=== PATIENT | female | born 1950 | race African-American/Black ===

== ENCOUNTER 2020-07-01 11:02 | Inpatient (IN) ==
[2020-07-01] MEDS ORDERED: ASPIRIN 325 MG TABLET PO ONE (11:31)
[2020-07-01] MEDS ORDERED: diphenhydrAMINE CAP 50 MG CAPSULE PO ONE (11:31)
[2020-07-01] MEDS ORDERED: DIAZEPAM 5 MG TABLET PO ONE (11:31)
[2020-07-01] MEDS ORDERED: MAGNESIUM SULF RIDER 2 GM in PREMIX 1 EACH IV PRN (11:31)
[2020-07-01] MEDS ORDERED: SODIUM CHLORIDE 0.9% 1,000 ML IV SCH (12:00)
[2020-07-01] MEDS ORDERED: DIAZEPAM 5 MG TABLET ONE (12:31)
[2020-07-01] MEDS ORDERED: diphenhydrAMINE CAP 50 MG CAPSULE ONE (12:31)
[2020-07-01] MEDS ORDERED: ASPIRIN 325 MG TABLET ONE (12:32)
[2020-07-01] MEDS ORDERED: LIDOCAINE 1% 20 ML VIAL ONE (13:40)
[2020-07-01] MEDS ORDERED: HYDROmorphone 2 MG/1 ML VIAL ONE (13:45)
[2020-07-01] MEDS ORDERED: MIDAZOLAM 2 MG/2 ML VIAL ONE (13:45)
[2020-07-01] MEDS ORDERED: HEPARIN 5,000 UNIT/1 ML VIAL ONE (14:09)
[2020-07-01] MEDS ORDERED: VERAPAMIL 5 MG/2 ML VIAL ONE (14:11)
[2020-07-01] MEDS ORDERED: NITROGLYCERIN DRIP 50 MG/250 ML BOTTLE IV ONE (14:11)
[2020-07-01] MEDS ORDERED: hydrALAZINE 20 MG/1 ML VIAL ONE (15:24)
[2020-07-01] MEDS ORDERED: NITROGLYCERIN SL 0.4 MG TABLET SL PRN (15:43)
[2020-07-01] MEDS: SODIUM CHLORIDE 0.9% 1,000 ML IV SCH (18:16)
[2020-07-01] MEDS ORDERED: ALBUTEROL 2.5 MG/3 ML NEB RESP TX PRN (19:00)
[2020-07-01] MEDS ORDERED: ONDANSETRON 4 MG/2 ML VIAL IV PRN (21:20)
[2020-07-01] MEDS: MAGNESIUM OXIDE 400 MG TABLET PO SCH (21:40)
[2020-07-01] MEDS: ATORVASTATIN 20 MG TABLET PO SCH (21:40)
[2020-07-01] MEDS: ISOSORBIDE MONONITRATE 60 MG TABLET PO SCH (21:40)
[2020-07-02 05:42] LABS: Basophils % 0.1 % (0.0-0.8); Eosinophils # 0.1 10*3/uL (0.0-0.87); Eosinophils % 0.7 % (0.00-10.9); Hematocrit 30.9 VOL% (35.7-47.0); Hemoglobin 9.9 GM/DL (12.0-16.0); Immature Granulocytes % 0.3 %; Immature Granulocytes Absolute 0.02 #; Lymphocytes # 2.3 10*3/uL (1.4-4.0); Lymphocytes % 34.4 % (21.3-54.2); Mean Corpuscular Volume 94.8 FL (87-102); Mean Platelet Volume 9.6 FL (9.6-12.0); Neutrophils % 56.5 % (38.7-73.9); Platelet Count 200 T/CUMM (130-400); Red Blood Count 3.26 MC/CUMM (3.8-5.5); Red Cell Distribution Width 14.5 % (9.3-17.3); White Blood Count 6.7 T/CUMM (4-12)
[2020-07-02 06:07] LABS: Osmolality,Calculated 288.7 MOS/KG (273-304)
[2020-07-02] MEDS: PROPRANOLOL 40 MG TABLET PO SCH (08:55)
[2020-07-02] MEDS: METOPROLOL SUCCINATE XL 25 MG TABLET PO SCH (08:55)
[2020-07-02] MEDS: DILTIAZEM CD 180 MG CAPSULE PO SCH (08:56)
[2020-07-02] MEDS: ASPIRIN EC 81 MG TABLET PO SCH (08:56)
[2020-07-02] MEDS ORDERED: CLOPIDOGREL 75 MG TABLET PO SCH (09:00)
[2020-07-02] MEDS: MAGNESIUM OXIDE 400 MG TABLET PO SCH ×2 (09:01→20:40)
[2020-07-02] MEDS ORDERED: THROMBIN TOPICAL (RECOMBINANT) 5,000 UNIT VIAL TOP ONE (10:11)
[2020-07-02] MEDS ORDERED: POTASSIUM CHLORIDE 20 MEQ TABLET PO ONE (11:00)
[2020-07-02] MEDS: SODIUM CHLORIDE 0.9% 1,000 ML IV SCH (15:54)
[2020-07-02] MEDS ORDERED: ACETAMINOPHEN 325 MG TABLET PO PRN (20:33)
[2020-07-02] MEDS: ISOSORBIDE MONONITRATE 60 MG TABLET PO SCH (20:40)
[2020-07-02] MEDS: ATORVASTATIN 20 MG TABLET PO SCH (20:40)
[2020-07-03 06:02] LABS: Basophils % 0.3 % (0.0-0.8); Eosinophils # 0.1 10*3/uL (0.0-0.87); Eosinophils % 0.9 % (0.00-10.9); Hematocrit 30.3 VOL% (35.7-47.0); Hemoglobin 9.5 GM/DL (12.0-16.0); Immature Granulocytes % 0.5 %; Immature Granulocytes Absolute 0.04 #; Lymphocytes # 2.9 10*3/uL (1.4-4.0); Lymphocytes % 36.8 % (21.3-54.2); Mean Corpuscular HGB Conc 31.4 GM/DL (32-36); Mean Corpuscular Volume 95.6 FL (87-102); Mean Platelet Volume 9.4 FL (9.6-12.0); Monocytes % 8.8 % (1.7-12.7); Neutrophils % 52.7 % (38.7-73.9); Platelet Count 195 T/CUMM (130-400); Red Blood Count 3.17 MC/CUMM (3.8-5.5); Red Cell Distribution Width 14.7 % (9.3-17.3); White Blood Count 7.9 T/CUMM (4-12)
[2020-07-03 06:25] LABS: Potassium 3.4 MMOL/L (3.5-5.1)
[2020-07-03] MEDS: MAGNESIUM OXIDE 400 MG TABLET PO SCH ×2 (09:00→21:05)
[2020-07-03] MEDS: ASPIRIN EC 81 MG TABLET PO SCH (09:00)
[2020-07-03] MEDS: METOPROLOL SUCCINATE XL 25 MG TABLET PO SCH (09:00)
[2020-07-03] MEDS: DILTIAZEM CD 180 MG CAPSULE PO SCH (09:01)
[2020-07-03] MEDS: PROPRANOLOL 40 MG TABLET PO SCH (09:01)
[2020-07-03] MEDS: POTASSIUM CHLORIDE RIDER 10 MEQ in PREMIX 1 EACH IV PRN ×2 (09:01→10:27)
[2020-07-03] MEDS: SODIUM CHLORIDE 0.9% 1,000 ML IV SCH (09:08)
[2020-07-03] MEDS: ISOSORBIDE MONONITRATE 60 MG TABLET PO SCH (21:05)
[2020-07-03] MEDS: ATORVASTATIN 20 MG TABLET PO SCH (21:05)
[2020-07-04] MEDS: SODIUM CHLORIDE 0.9% 1,000 ML IV SCH (09:16)
[2020-07-04] MEDS: DILTIAZEM CD 180 MG CAPSULE PO SCH (09:16)
[2020-07-04] MEDS: METOPROLOL SUCCINATE XL 25 MG TABLET PO SCH (09:16)
[2020-07-04] MEDS: PROPRANOLOL 40 MG TABLET PO SCH (09:17)
[2020-07-04] MEDS: MAGNESIUM OXIDE 400 MG TABLET PO SCH (09:17)
[2020-07-04] MEDS: ASPIRIN EC 81 MG TABLET PO SCH (09:17)
[2020-07-04 10:38] LABS: Basophils % 0.3 % (0.0-0.8); Eosinophils # 0.2 10*3/uL (0.0-0.87); Eosinophils % 1.9 % (0.00-10.9); Hematocrit 30.5 VOL% (35.7-47.0); Hemoglobin 10.1 GM/DL (12.0-16.0); Immature Granulocytes % 0.5 %; Immature Granulocytes Absolute 0.04 #; Lymphocytes # 2.6 10*3/uL (1.4-4.0); Lymphocytes % 34.2 % (21.3-54.2); Mean Corpuscular HGB Conc 33.1 GM/DL (32-36); Mean Corpuscular Volume 93.8 FL (87-102); Mean Platelet Volume 9.4 FL (9.6-12.0); Monocytes % 7.9 % (1.7-12.7); Neutrophils % 55.2 % (38.7-73.9); Platelet Count 197 T/CUMM (130-400); Red Blood Count 3.25 MC/CUMM (3.8-5.5); Red Cell Distribution Width 14.3 % (9.3-17.3); White Blood Count 7.7 T/CUMM (4-12)
[2020-07-04 11:07] LABS: Calcium 8.2 MG/DL (8.5-10.1); Osmolality,Calculated 282.3 MOS/KG (273-304); Potassium 3.8 MMOL/L (3.5-5.1)
[2020-07-04 11:54] VITALS: BP 134/60
== END 2020-07-04 12:23 | disposition home or self-care (01) | DRG 271 ==
LOC: N.CL 11:02 → N.5E 16:33
PROVIDERS: ADMIT Internal Medicine Cardiovascular Disease; ATTEND Internal Medicine Cardiovascular Disease